=== PATIENT | male | born 2000 | race Caucasian/White ===

== ENCOUNTER 2022-11-04 06:56 | Outpatient (CLI) | payer BC ==
[2022-11-04 07:23] LABS: TOTAL HEMOGLOBIN 18.3 G/dl (14.0-17.9)
== END 2022-11-04 23:59 | disposition home or self-care (01) ==
LOC: RT 06:56
PROVIDERS: ATTEND Nurse Practitioner Occupational Health
DX: J45.998 Other asthma (principal); D45 Polycythemia vera
CPT/HCPCS: 85018; 94010; 94727; 94729